=== PATIENT | male | born 1995 | race Caucasian/White ===

== ENCOUNTER 2016-07-15 02:34 | Emergency (ER) | payer BC, OTHER ==
[2016-07-15 02:41] VITALS: BP 131/83
[2016-07-15] MEDS ORDERED: TYLENOL 325 MG PO STA (02:53)
[2016-07-15] MEDS ORDERED: Augmentin 875-125 Tablet PO ONE (02:53)
[2016-07-15] MEDS ORDERED: TYLENOL 325 MG ONE (02:57)
[2016-07-15] MEDS ORDERED: Augmentin 875-125 Tablet ONE (02:57)
--- NOTE | 2016-07-15 03:03 | ERPHSYRPT ---
- History of Present Illness Time Seen by Provider: 07/15/16 02:45 Source: patient Exam Limitations: clinical condition Patient Subjective Stated Complaint: STATES THAT HE BEGAN HAVING FEVER/CHILLS ET COUGH PRODUCTIVE OF GREEN SPUTUM WITH PAINFUL SWALLOWING EARLIER IN THE DAY - STATES THAT HE GOT WORSE HE WENT TO WORK TONIGHT Triage Nursing Assessment: AMBULATORYT TO TREATMENT AREA - STEADY GAIT TO CART - MOVES ALL EXTRMITIES WITH EQUAL STRENGTH. ALERT/ORIENTED - PLEASANT AFFECT. SKIN HOT/DRY - NO RASH/INJURY. RESPS EASY - NON-LABORED - PERSISTING LOOSE COUGH Physician History: PATIENT COMPLAINS OF PRODUCTIVE COUGH FOR 24 HOURS, ASSOCIATED WITH FEVER, CHILLS , SORETHROAT. DENIES HEADACHE,DIFFICULTY BREATHING. Timing/Duration: today Cough Quality/Degree: productive cough, blood streaked sputum Possible Cause: no prior episodes Associated Symptoms: fever, chills, cough, muscle aches Allergies/Adverse Reactions: No Known Drug Allergies Allergy (Unverified 07/15/16 02:35) Hx Tetanus, Diphtheria Vaccination/Date Given: Yes Hx Influenza Vaccination/Date Given: No Hx Pneumococcal Vaccination/Date Given: No Immunizations Up to Date: Yes - Review of Systems Constitutional: Fever, Chills Eyes: No Symptoms Ears, Nose, & Throat: No Symptoms Respiratory: Cough, No Dyspnea Cardiac: No Chest Pain, No Edema, No Syncope Abdominal/Gastrointestinal: No Symptoms, No Abdominal Pain, No Nausea, No Vomiting, No Diarrhea Genitourinary Symptoms: No Symptoms, No Dysuria Musculoskeletal: Arthralgias, No Back Pain, No Neck Pain Skin: No Rash Neurological: No Dizziness, No Focal Weakness, No Sensory Changes Psychological: No Symptoms Endocrine: No Symptoms All Other Systems: Reviewed and Negative - Past Medical History Pertinent Past Medical History: No - Past Surgical History Past Surgical History: No - Social History Smoking Status: Current every day smoker Exposure to second hand smoke: No Drug Use: none Patient Lives Alone: No - Nursing Vital Signs Nursing Vital Signs: Initial Vital Signs Temperature 100.7 F Temperature Source Oral Pulse Rate 100 Respiratory Rate 16 Blood Pressure [Right Arm] 131/83 Pain Intensity 7 - Physical Exam General Appearance: no apparent distress, alert Eye Exam: PERRL/EOMI, eyes nml inspection Ears, Nose, Throat Exam: normal ENT inspection, TMs normal, pharynx normal, moist mucous membranes Neck Exam: normal inspection, non-tender, supple, full range of motion Respiratory Exam: normal breath sounds, lungs clear, No respiratory distress Cardiovascular Exam: regular rate/rhythm, normal heart sounds Gastrointestinal/Abdomen Exam: soft, normal bowel sounds, No tenderness Back Exam: normal inspection, No CVA tenderness, No vertebral tenderness Extremity Exam: normal inspection, normal range of motion Neurologic Exam: alert, oriented x 3, cooperative, normal mood/affect, sensation nml, No motor deficits Skin Exam: normal color, warm, dry, No rash Lymphatic Exam: No adenopathy SpO2 Interpretation: normal SpO2: 99 Oxygen Delivery: Room Air - Radiology Exams Chest X-ray Interpretation: Interpreted by me, No Infiltrates Ordered Tests: Active Orders 24 hr Category Date Time Status CHEST 2 VIEWS (PA AND LAT) Stat Exams 07/15/16 02:53 Taken CULTURE, THROAT Stat Lab 07/15/16 02:52 Received STREP SCREEN-BETA A Stat Lab 07/15/16 02:52 Completed Medication Summary Discontinued Medications Generic Name Dose Route Start Last Admin Trade Name Freq PRN Reason Stop Dose Admin Acetaminophen 650 mg 07/15/16 02:53 07/15/16 02:57 Tylenol 325 Mg PO 07/15/16 02:54 650 mg STAT STA Administration Acetaminophen Confirm 07/15/16 02:57 Tylenol 325 Mg Administered 07/15/16 02:58 Dose 650 mg .ROUTE .STK-MED ONE Amoxicillin/Clavulanate Potassium 875 mg 07/15/16 02:53 07/15/16 02:58 Augmentin 875-125 Tablet PO 07/15/16 02:54 875 mg STAT ONE Administration Amoxicillin/Clavulanate Potassium Confirm 07/15/16 02:57 Augmentin 875-125 Tablet Administered 07/15/16 02:58 Dose 875 mg .ROUTE .STK-MED ONE Lab/Rad Data: Laboratory Results 07/15/16 07/15/16 Range/Units 03:18 02:52 Influenza Type A Ag NEGATIVE (NEGATIVE) Influenza Type B Ag NEGATIVE (NEGATIVE) RSV (PCR) NEGATIVE (Negative) Streptococcus Screen NEGATIVE (Negative) - Progress Progress: improved (ADMINISTERED AUGMENTIN 875MG, TYLENOL 650MG ORALLY) Progress Note: 07/15/16 04:10-PATIENT GIVEN TYLENOL 650MG AND AUGMENTIN 875MG ORALLY Counseled pt/family regarding: lab results, diagnosis, need for follow-up - Departure Time of Disposition: 04:20 Departure Disposition: Home Clinical Impression: ACUTE BRONCHITIS Condition: Stable Critical Care Time: No Referrals: DOCTOR,NO FAMILY [Primary Care Provider] - Additional Instructions: ALTERNATE TYLENOL 650MG EVERY OTHER 4 HOURS WITH MOTRIN FOR FEVER, ACHES AND PAINS. ANTIBIOTIC AUGMENTIN 875 MG TWICE DAILY FOR 10 DAYS TAKE OVER THE COUNTER COUGH SYRUP FOR COUGH NEEDED. CONSULT YOUR FAMILY PHYSICIAN FOR EVALUATION IN 1 WEEK. DRINK PLENTY OF FLUIDS. Prescriptions: Ibuprofen 600 mg PO Q6H PRN PRN #20 tablet PRN Reason: FEVER, PAIN Amox Tr/Potass Clav. 875 mg [Augmentin 875-125 Tablet] 875 mg PO BID #20 tablet
[2016-07-15 04:20] VITALS: PULSE 92; O2SAT 100
--- NOTE | 2016-07-15 09:05 | XRAY ---
Indication: Cough. Comparison: April 05, 2007. PA/lateral chest hyperinflated with a few tiny calcified granulomas. No focal infiltrate, consolidation, or large effusion. Heart and mediastinal structures within normal limits. Bony thorax intact. Impression: Nonacute hyperinflated chest.
== END 2016-07-15 04:24 | disposition home or self-care (01) ==
LOC: ED 02:34
DX: J20.9 Acute bronchitis, unspecified (principal); R50.9 Fever, unspecified; R05 Cough
CPT/HCPCS: 71020; 87070; 87430; 87631; 99282; A9270-GY